=== PATIENT | female | born 1955 | race Caucasian/White ===

== ENCOUNTER 2020-08-19 11:57 | Outpatient (REF) | payer OTHER, SELFPAY ==
[2020-08-19 14:06] LABS: MANUAL DIFF FLAG NO
[2020-08-19 14:11] LABS: Basophils Percent Auto 0.4 % (0-2); Eosinophils Absolute Auto 0.1 X10*3/uL (0.0-0.4); Eosinophils Percent Auto 1.9 % (0-4); Hematocrit 39.4 % (37-47); Hemoglobin 13.2 g/dl (12.0-16.0); Imm Gran Abs Auto 0.02 X10*3/uL (0.00-0.03); Imm Gran Pct Auto 0.3 % (0.0-0.4); Lymphocytes Absolute Auto 1.9 X10*3/uL (1.2-4.9); Mean Corpuscular HGB Conc 33.5 g/dl (31.0-35.0); Mean Corpuscular Hemoglobin 31.4 pg (27.0-33.0); Mean Corpuscular Volume 93.6 fL (80-98); Mean Platelet Volume 10.2 fL (9.4-12.3); Monocytes Absolute Auto 0.8 X10*3/uL (0.1-1.2); Neutrophils Percent Auto 58.4 % (45-73); Platelet Count 247 X10*3/uL (160-400); Red Blood Count 4.21 X10*6/uL (4.20-5.50); Red Cell Distribution Width 13.5 % (11.0-16.0); White Blood Count 6.8 X10*3/uL (4.8-10.8)
== END 2020-08-19 11:58 | disposition home or self-care (01) ==
LOC: HO.LAB 11:57
PROVIDERS: PCP Internal Medicine; Referring Provider Internal Medicine; Visit Provider Surgery
DX: K37 Unspecified appendicitis (principal)
CPT/HCPCS: 36415; 85025; 99213

== ENCOUNTER 2020-08-22 15:52 | Outpatient (REF) | payer OTHER, SELFPAY ==
[2020-08-22 17:03] LABS: Blood Urea Nitrogen 13 mg/dL (9-16); Estimated Glomerular Filt Rate > 60
== END 2020-08-22 15:53 | disposition home or self-care (01) ==
LOC: HO.LAB 15:52
PROVIDERS: PCP Internal Medicine; Visit Provider Surgery
DX: K37 Unspecified appendicitis (principal)
CPT/HCPCS: 82565; 84520

== ENCOUNTER 2020-08-23 14:17 | Outpatient (REF) | payer OTHER, SELFPAY ==
--- NOTE | 2020-08-23 14:20 | CT_ITS ---
EXAMINATION: CT ABDOMEN AND PELVIS WITH CONTRAST CLINICAL INFORMATION: Appendicitis COMPARISON: Previous CT scans most recent 07/25/2020 TECHNIQUE: Multidetector volumetric images were obtained from the superior aspect of the liver through the pubic symphysis following administration 85 mL of Omnipaque 350 intravenous contrast. Sagittal and coronal reformatted images were obtained on the technologist's workstation. Oral contrast: Yes This CT examination was performed using dose optimization techniques as appropriate, variously including the following: *Automated exposure control *Adjustment of mA and/or kV according to patient size (this includes techniques or standardized protocols for targeted exams where dose is matched to indication/reason for exam; i.e. extremities or head) *Use of iterative reconstruction technique DLP: 289 mGy-cm FINDINGS: LUNG BASES: The visualized lung bases are unremarkable. LIVER, GALLBLADDER, AND BILIARY TREE: The liver is normal in size, shape, and attenuation. No focal hepatic lesion or biliary ductal dilatation is present. The gallbladder is unremarkable with no evidence of radiopaque gallstones, gallbladder wall thickening, or obvious pericholecystic inflammatory changes. PANCREAS: Unremarkable. SPLEEN: Unremarkable. ADRENAL GLANDS: Unremarkable. KIDNEYS AND URETERS: There is a 1 cm cyst in the upper pole of the right kidney. The kidneys are otherwise unremarkable. BLADDER: Unremarkable. GASTROINTESTINAL TRACT: The previously identified right lower quadrant drainage catheter has been removed. There is a small focus of residual soft tissue seen in the right lower quadrant inferior to the cecum where the drainage catheter was previously positioned. This measures approximately 2.7 x 1.5 x 2 cm, has a thickened wall and central low attenuation measuring 0.5 x 1 cm questionable for small amount of fluid. This is in the expected location of the base of the appendix. Coronal reconstructed image 60. The tip of the appendix may be seen coronal reconstructed image 60-65 and be normal. There is wall thickening of the adjacent cecum and small bowel that may be reactive. There is mild diverticulosis of the colon. Small and large bowel is otherwise unremarkable. The stomach is unremarkable. ABDOMINAL WALL: No significant hernia is appreciated. LYMPH NODES: Normal. VASCULAR: Unremarkable. PELVIC VISCERA: The uterus and adnexa are unremarkable. OSSEOUS STRUCTURES: There is scoliosis and degenerative change of the spine. CT/CT abdomen pelvis w con IMPRESSION: Drainage catheter no longer seen. Residual small thick-walled fluid-containing lesion inferior to the cecum in the region of the base of the appendix measuring 2.7 x 1.5 x 2 cm. The tip of the appendix is normal appearing. Reactive wall thickening of the adjacent cecum and small bowel.
[2020-08-23] MEDS: iohexoL 350 MG/ML 100 ML INFUS..BTL IV (16:32)
== END 2020-08-23 14:18 | disposition home or self-care (01) ==
LOC: HO.CT 14:17
PROVIDERS: PCP Internal Medicine; Visit Provider Surgery
DX: K37 Unspecified appendicitis (principal)
CPT/HCPCS: 74177; Q9967

== ENCOUNTER → 2020-08-26 08:29 | Outpatient (BNVA) | payer OTHER, SELFPAY | PROVIDERS: PCP Internal Medicine; Visit Provider Surgery | DX: K37 Unspecified appendicitis (principal); Z98.890 Other specified postprocedural states | CPT/HCPCS: 99212 ==

== ENCOUNTER 2021-03-02 11:18 | Outpatient (REF) | payer OTHER, SELFPAY ==
[2021-03-03 09:22] LABS: Lyme Abs Screen <0.90 index
== END 2021-03-02 11:19 | disposition home or self-care (01) ==
LOC: HO.HMGCLDS 11:18
PROVIDERS: PCP Internal Medicine; Visit Provider Hospitalist
DX: T14.8XXA Other injury of unspecified body region, initial encounter (principal); W57.XXXA Bitten or stung by nonvenomous insect and other nonvenomous arthropods, initial encounter
CPT/HCPCS: 36415; 86617; 86618

== ENCOUNTER 2021-06-14 08:40 | Outpatient (REF) | payer OTHER, SELFPAY ==
[2021-06-14 11:21] LABS: Hematocrit 43.7 % (37-47); Hemoglobin 14.5 g/dl (12.0-16.0); Mean Corpuscular HGB Conc 33.2 g/dl (31.0-35.0); Mean Corpuscular Hemoglobin 30.7 pg (27.0-33.0); Mean Corpuscular Volume 92.4 fL (80-98); Platelet Count 232 X10*3/uL (160-400); Red Blood Count 4.73 X10*6/uL (4.20-5.50); Red Cell Distribution Width 12.8 % (11.0-16.0); White Blood Count 4.3 X10*3/uL (4.8-10.8)
[2021-06-14 12:17] LABS: Alanine Aminotransferase 26 U/L (0-31); Albumin Level 4.2 g/dL (3.5-5.0); Alkaline Phosphatase 85 U/L (39-117); Anion Gap 14 (12-20); Aspartate Amino Transferase 21 U/L (5-31); Bilirubin Total 0.7 mg/dL (0.0-1.0); Blood Urea Nitrogen 14 mg/dL (9-16); Calcium 9.6 mg/dL (8.4-10.2); Carbon Dioxide 26 mmol/L (22-29); Chloride 104 mmol/L (96-108); Cholesterol 236 mg/dL; Estimated Glomerular Filt Rate > 60; Glucose Fasting 97 mg/dL (60-99); HDL Cholesterol 61 mg/dL; LDL Cholesterol Calculated 144 mg/dl; Potassium 4.3 mmol/L (3.3-5.1); Sodium 140 mmol/L (135-145); Total Protein 7.3 g/dL (6.5-8.0); Triglycerides 158 mg/dL
[2021-06-14 12:23] LABS: TSH reflex Free T4 1.03 uIU/mL (0.32-4.0); Vitamin D 25-OH Total 32.4 ng/mL (>30)
== END 2021-06-14 08:41 | disposition home or self-care (01) ==
LOC: HO.HMGCLDS 08:40
PROVIDERS: PCP Internal Medicine; Visit Provider Internal Medicine
DX: Z00.00 Encounter for general adult medical examination without abnormal findings (principal)
CPT/HCPCS: 36415; 80053; 80061; 82306; 84443; 85027

== ENCOUNTER 2021-11-13 13:42 | Outpatient (REF) | payer OTHER, SELFPAY ==
--- NOTE | ~2021-11-13 | XR_ITS ---
EXAMINATION: XR SHOULDER, RIGHT XR SCAPULA, RIGHT CLINICAL INFORMATION: M89.8X1 - Other specified disorders of bone, shoulder COMPARISON: Chest radiographs 10/05/2019 TECHNIQUE: Right shoulder is imaged in 3 views. Right scapula is imaged in 2 views. There are total of 5 views. FINDINGS: There is no fracture or dislocation. Bony mineralization is normal. There is no destructive process or periostitis. The glenohumeral joint is normal. There are no visible rotator cuff calcifications. The scapular appears intact. There are mild degenerative changes acromioclavicular joint. The acromioclavicular alignment is normal. XR/XR scapula RT IMPRESSION: 1. No fracture, dislocation, destructive process, or rotator cuff calcifications. 2. Mild degenerative changes acromioclavicular joint.
--- NOTE | ~2021-11-13 | XR_ITS ---
EXAMINATION: XR SHOULDER, RIGHT XR SCAPULA, RIGHT CLINICAL INFORMATION: M89.8X1 - Other specified disorders of bone, shoulder COMPARISON: Chest radiographs 10/05/2019 TECHNIQUE: Right shoulder is imaged in 3 views. Right scapula is imaged in 2 views. There are total of 5 views. FINDINGS: There is no fracture or dislocation. Bony mineralization is normal. There is no destructive process or periostitis. The glenohumeral joint is normal. There are no visible rotator cuff calcifications. The scapular appears intact. There are mild degenerative changes acromioclavicular joint. The acromioclavicular alignment is normal. XR/XR shoulder RT min 2V IMPRESSION: 1. No fracture, dislocation, destructive process, or rotator cuff calcifications. 2. Mild degenerative changes acromioclavicular joint.
== END 2021-11-13 13:43 | disposition home or self-care (01) ==
LOC: HO.HMGCX 13:42
PROVIDERS: PCP Internal Medicine; Visit Provider Internal Medicine
DX: M89.8X1 Other specified disorders of bone, shoulder (principal); M25.511 Pain in right shoulder
CPT/HCPCS: 73010; 73030

== ENCOUNTER 2021-12-25 10:04 | Outpatient (REF) | payer OTHER, SELFPAY ==
--- NOTE | ~2021-12-25 | MR_ITS ---
EXAMINATION: MR SHOULDER WITHOUT CONTRAST, RIGHT CLINICAL INFORMATION: Right shoulder pain. COMPARISON: Right shoulder and scapula radiographs dating 11/13/2021. TECHNIQUE: MRI of the shoulder without contrast was performed on a high-field scanner. FINDINGS: ROTATOR CUFF: Mild supraspinatus tendinosis with focal bursal surface fraying/partial tearing measuring 0.8 x 0.9 cm (AP by ML). Mild subscapularis tendinosis with distal articular surface partial tearing measuring 1.9 cm in ML dimension. No full-thickness rotator cuff tendon tear. No muscle atrophy or fatty infiltration. BICEPS: Normal. CORACOACROMIAL ARCH: The undersurface of the acromion is curved with no subacromial spur. Moderate acromioclavicular osteoarthritis. Mild fluid within the subacromial-subdeltoid bursa, consistent with mild bursitis. LABRUM/CAPSULE: Normal. GLENOHUMERAL JOINT/MARROW: Normal. MR/MR shoulder RT wo con IMPRESSION: 1. Mild supraspinatus tendinosis with bursal surface fraying/partial tearing measuring 0.8 x 0.9 cm. Mild subscapularis tendinosis with distal articular surface partial tearing measuring 1.9 cm. No full-thickness rotator cuff tendon tear. 2. Moderate acromioclavicular osteoarthritis. 3. Mild subacromial-subdeltoid bursitis.
--- NOTE | ~2021-12-25 | XR_ITS ---
EXAMINATION: XR SKULL CLINICAL INFORMATION: Retinal intervention. Evaluate for metallic foreign body. COMPARISON: None TECHNIQUE: 5 views of the skull were obtained. FINDINGS: There is no radiopaque metallic foreign body seen in the skull or the orbits. There are dental fillings seen throughout the oral cavity. XR/XR skull <4V IMPRESSION: No radiopaque metallic foreign body seen in the skull or the orbits.
== END 2021-12-25 10:05 | disposition home or self-care (01) ==
LOC: HO.MRI 10:04
PROVIDERS: PCP Internal Medicine; Visit Provider Internal Medicine
DX: M25.511 Pain in right shoulder (principal); Z91.81 History of falling
CPT/HCPCS: 70250; 73221

== ENCOUNTER → 2022-01-15 12:42 | Outpatient (BNVA) | payer OTHER, SELFPAY | PROVIDERS: PCP Internal Medicine; Visit Provider Orthopaedic Surgery | DX: M75.51 Bursitis of right shoulder (principal); M75.90 Shoulder lesion, unspecified, unspecified shoulder | CPT/HCPCS: 20610; 99202; J1100 ==

== ENCOUNTER 2022-05-15 08:10 | Outpatient (REF) | payer OTHER, SELFPAY ==
[2022-05-15 11:49] LABS: Cholesterol 231 mg/dL; Glucose Fasting 114 mg/dL (60-99); HDL Cholesterol 56 mg/dL; LDL Cholesterol Calculated 149 mg/dl; Triglycerides 131 mg/dL
[2022-05-15 11:56] LABS: Vitamin D 25-OH Total 34.2 ng/mL (>30)
== END 2022-05-15 08:11 | disposition home or self-care (01) ==
LOC: HO.HMGCLDS 08:10
PROVIDERS: Visit Provider Internal Medicine
DX: Z00.01 Encounter for general adult medical examination with abnormal findings (principal); E78.5 Hyperlipidemia, unspecified
CPT/HCPCS: 36415; 80061; 82306; 82947

== ENCOUNTER 2022-10-06 08:43 | Outpatient (REF) | payer MEDICARE, SELFPAY ==
[2022-10-06 11:43] LABS: Cholesterol 248 mg/dL; HDL Cholesterol 64 mg/dL; LDL Cholesterol Calculated 165 mg/dl; Triglycerides 95 mg/dL
[2022-10-06 12:14] LABS: Vitamin D 25-OH Total 28.5 ng/mL (>30)
== END 2022-10-06 08:44 | disposition home or self-care (01) ==
LOC: HO.HMGCLDS 08:43
PROVIDERS: PCP Internal Medicine; Visit Provider Internal Medicine
DX: E78.5 Hyperlipidemia, unspecified (principal); Z78.0 Asymptomatic menopausal state
CPT/HCPCS: 36415; 80061; 82306

== ENCOUNTER 2022-12-25 12:25 | Outpatient (REF) | payer MEDICARE, SELFPAY ==
--- NOTE | ~2022-12-25 | XR_ITS ---
EXAMINATION: XR RIBS, BILATERAL CLINICAL INFORMATION: Fall. COMPARISON: Chest x-ray dated 10/05/2019 TECHNIQUE: 3 views of the bilateral ribs were obtained. FINDINGS: Lungs are clear. No consolidation, pneumothorax, or pleural effusion. The cardiomediastinal silhouette and pulmonary vasculature are normal. Osseous structures are unremarkable. Ribs are intact. No fractures are identified. XR/XR ribs BI min 4V w CXR1V IMPRESSION: No rib fractures Clear lungs
== END 2022-12-25 12:26 | disposition home or self-care (01) ==
LOC: HO.HMGCX 12:25
PROVIDERS: PCP Internal Medicine; Visit Provider Nurse Practitioner Family
DX: R06.02 Shortness of breath (principal); Z91.81 History of falling
CPT/HCPCS: 71111